=== PATIENT | female | born 1955 | race Caucasian/White ===

== ENCOUNTER 2016-11-12 09:50 | Emergency (ER) | payer MEDICAID ==
[2016-11-12 10:02] VITALS: BMI 30.7
[2016-11-12 10:05] VITALS: BP 123/83; PULSE 73; RESP 16; TEMP 98; O2SAT 100
[2016-11-12] MEDS ORDERED: Silver Sulfadiazine 1% CREAM (50 gm) TOP STA (10:17)
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
[2016-11-12] MEDS ORDERED: Silver Sulfadiazine 1% CREAM (50 gm) ONE (10:48)
== END 2016-11-12 11:12 | disposition home or self-care (01) ==
LOC: H.ER 09:50
DX: T25.222A Burn of second degree of left foot, initial encounter (principal); X10.2XXA Contact with fats and cooking oils, initial encounter; Y92.89 Other specified places as the place of occurrence of the external cause

== ENCOUNTER 2017-01-03 20:19 | Emergency (ER) | payer MEDICAID ==
[2017-01-03 20:20] VITALS: BMI 30.7
[2017-01-03 20:27] VITALS: BP 112/68; PULSE 66; RESP 18; TEMP 98; O2SAT 98
--- NOTE | 2017-01-03 21:51 | ED PDOC ---
HPI: General Adult Time Seen by Provider: 01/03/17 20:53 Chief Complaint (Nursing): Headache Chief Complaint (Provider): Headache History Per: Patient History/Exam Limitations: no limitations Current Symptoms Are (Timing): Still Present Additional Complaint(s): 61 y/o female with past medical history of arthritis presents to the ED after being diagnosed with Lyme disease by her orthopedic (Dr. Wills). He recommended her to come to ED for further bloodwork. She notes that her face is puffy and has had headaches, neck pain and shoulder pain being worked up as outpatient. Denies rash. Denies any travel or exposure to areas endemic of Lyme disease. PMD: Mo Rodrigues MD Past Medical History Reviewed: Historical Data, Nursing Documentation, Vital Signs Vital Signs: Last Vital Signs Temp 98 F 01/03/17 20:23 Pulse 66 01/03/17 20:23 Resp 18 01/03/17 20:23 BP 112/68 01/03/17 20:23 Pulse Ox 98 01/03/17 21:57 - Medical History PMH: Anxiety, Arthritis, Asthma, COPD, Hypercholesterolemia, Osteoporosis Denies: HIV, Chronic Kidney Disease - Surgical History Surgical History: (x 2) - Family History Family History: States: Unknown Family Hx - Immunization History Hx Tetanus Toxoid Vaccination: No (not sure of last booster) - Home Medications Home Medications: Ambulatory Orders Medication Instructions Recorded Albuterol HFA [Ventolin HFA 90 2 puff IH Q4H PRN 11/25/15 mcg/actuation (8 g)] Alprazolam [Xanax] 0.5 mg PO BID 11/25/15 Zolpidem [Ambien] 10 mg PO HS PRN 11/25/15 Ibuprofen [Motrin Tab] 800 mg PO Q8 PRN #20 tab 11/12/16 Silver Sulfadiazine 1% 20 gm 1 ea TOP ASDIR #1 tube 11/12/16 [Silvadene] traMADol [Ultram] 50 mg PO TID PRN #15 tab 11/12/16 Cyclobenzaprine [Cyclobenzaprine 10 mg PO BID #15 tab 01/03/17 HCl] Lidocaine [Aspercreme] 1 each TP DAILY #10 adh..patch 01/03/17 - Allergies Allergies/Adverse Reactions: Allergies Allergy/AdvReac Type Severity Reaction Status Date / Time iodine Allergy RASH Verified 11/12/16 10:13 Review of Systems ROS Statement: Except As Marked, All Systems Reviewed And Found Negative (As per HPI, otherwise negative) Musculoskeletal: Positive for: Neck Pain, Shoulder Pain Skin: Negative for: Rash Neurological: Positive for: Headache Physical Exam - Reviewed Nursing Documentation Reviewed: Yes Vital Signs Reviewed: Yes - Physical Exam Appears: Positive for: Non-toxic, No Acute Distress Head Exam: Positive for: ATRAUMATIC, NORMOCEPHALIC Skin: Positive for: Normal Color, Warm, Dry Eye Exam: Positive for: EOMI, Normal appearance, PERRL Neck: Positive for: Normal, Painless ROM, Supple Cardiovascular/Chest: Positive for: Regular Rate, Rhythm. Negative for: Murmur Respiratory: Positive for: Normal Breath Sounds. Negative for: Respiratory Distress Gastrointestinal/Abdominal: Positive for: Normal Exam, Soft. Negative for: Tenderness Back: Positive for: Normal Inspection. Negative for: L CVA Tenderness, R CVA Tenderness, Vertebral Tenderness Extremity: Positive for: Normal ROM. Negative for: Pedal Edema, Deformity Neurologic/Psych: Positive for: Alert, Oriented (x3) - ECG O2 Sat by Pulse Oximetry: 98 (RA) Pulse Ox Interpretation: Normal Medical Decision Making Medical Decision Making: Time: 21:08 Initial Impression: Lyme disease in setting of arthritis Plan: Lyme disease AB (IGG, M), IB Lyme disease, EIA, W/RFL WB Flexeril 10mg PO Motrin 600mg PO Explained to patient that lyme titers will take days to come back, states she will followup with Dr. Rodrigues in 2 days. Stable for discharge. Return precautions discussed. Scribe Attestation: Documented by Joseph Wills acting as a scribe for Eloy Price MD. Scribe Attestation: All medical record entries made by the Scribe were at my direction and personally dictated by me. I have reviewed the chart and agree that the record accurately reflects my personal performance of the history, physical exam, medical decision making, and the department course for this patient. I have also personally directed, reviewed, and agree with the discharge instructions and disposition. Disposition - Clinical Impression Clinical Impression: Joint pain - Disposition Referrals: Mo Rodrigues MD [Staff Provider] - Disposition: Routine/Home Disposition Time: 21:00 Condition: STABLE Additional Instructions: Please followup with Dr. Rodrigues for your blood results. Prescriptions: Cyclobenzaprine [Cyclobenzaprine HCl] 10 mg PO BID #15 tab Lidocaine [Aspercreme] 1 each TP DAILY #10 adh..patch Instructions: Arthralgia (ED) Forms: [facility] (Latvian)
[2017-01-06 07:36] LABS: 18 KD (IGG) BAND Nonreactive; 23 KD (IGG) BAND Nonreactive; 23 KD (IGM) BAND Nonreactive; 28 KD (IGG) BAND Nonreactive; 30 KD (IGG) BAND Nonreactive; 39 KD (IGG) BAND Nonreactive; 39 KD (IGM) BAND Nonreactive; 41 KD (IGG) BAND Nonreactive; 41 KD (IGM) BAND Nonreactive; 45 KD (IGG) BAND Nonreactive; 58 KD (IGG) BAND Nonreactive; 66 KD (IGG) BAND Nonreactive; 93 KD (IGG) BAND Nonreactive; LYME DISEASE INTERP (IGG) Negative (Negative)
== END 2017-01-03 22:10 | disposition home or self-care (01) ==
LOC: H.ER 20:19
DX: M25.50 Pain in unspecified joint (principal); M81.0 Age-related osteoporosis without current pathological fracture; J44.9 Chronic obstructive pulmonary disease, unspecified; F41.9 Anxiety disorder, unspecified; E78.00 Pure hypercholesterolemia, unspecified

== ENCOUNTER 2018-02-14 19:20 | Emergency (ER) | payer MEDICAID ==
[2018-02-14 19:20] VITALS: BMI 32.3
[2018-02-14 21:14] VITALS: BP 135/89; PULSE 69; RESP 16; TEMP 98.3; O2SAT 97
[2018-02-14] MEDS ORDERED: Albuterol-Ipratrop 3 mg / 0.5 (3 ml) UD ONE (21:24)
[2018-02-14] MEDS ORDERED: Albuterol-Ipratrop 3 mg / 0.5 (3 ml) UD INH STA ×2 (21:37→22:00)
--- NOTE | 2018-02-14 21:46 | ED PDOC ---
HPI: Influenza Time Seen by Provider: 02/14/18 21:36 Chief Complaint: Flu-like Symptoms Chief Complaint (Provider): Flu-like Symptoms History Per: Patient Exam Limitations: no limitations Onset/Duration Of Symptoms: Days Symptoms include: headache, bodyaches, cough Additional complaint(s):: 34 y/o female with PMHx of asthma presents to the ED for an evaluation of cough, headache, nausea and difficulty breathing onset for one week. Patient has received her flu shot. Also reports of muscle pain and body ache. Otherwise she denies chills, ear pain, vomiting or diarrhea. PMD: Mo Rodrigues Past Medical History Reviewed: Historical Data, Nursing Documentation, Vital Signs Vital Signs: Last Vital Signs Temp 98.3 F 02/14/18 21:11 Pulse 69 02/14/18 21:11 Resp 16 02/14/18 21:11 BP 135/89 02/14/18 21:11 Pulse Ox 97 02/14/18 21:11 - Medical History PMH: Anxiety, Arthritis, Asthma, COPD, Hypercholesterolemia, Osteoporosis Denies: HIV, Chronic Kidney Disease - Surgical History Surgical History: (x 2) - Family History Family History: States: Unknown Family Hx - Immunization History Hx Tetanus Toxoid Vaccination: No (not sure of last booster) - Home Medications Home Medications: Ambulatory Orders Medication Instructions Recorded RX: Albuterol HFA [Ventolin HFA 90 2 puff IH Q4H PRN 11/25/15 mcg/actuation (8 g)] RX: Alprazolam [Xanax] 0.5 mg PO BID 11/25/15 RX: Zolpidem [Ambien] 10 mg PO HS PRN 11/25/15 Ibuprofen [Motrin Tab] 800 mg PO Q8 PRN #20 tab 11/12/16 RX: traMADol [Ultram] 50 mg PO TID PRN #15 tab 11/12/16 Silver Sulfadiazine 1% 20 gm 1 ea TOP ASDIR #1 tube 11/12/16 [Silvadene] Cyclobenzaprine [Cyclobenzaprine 10 mg PO BID #15 tab 01/03/17 HCl] Lidocaine [Aspercreme] 1 each TP DAILY #10 adh..patch 01/03/17 Oseltamivir Phosphate [Tamiflu] 75 mg PO BID #10 capsule 01/09/19 RX: Cyclobenzaprine [Flexeril] 10 mg PO TID #27 tab 02/14/18 RX: Diclofenac Potassium 50 mg PO BID #20 tablet 02/14/18 - Allergies Allergies/Adverse Reactions: Allergies Allergy/AdvReac Type Severity Reaction Status Date / Time Iodinated Contrast- Oral and Allergy RASH Verified 02/14/18 21:11 IV Dye iodine Allergy RASH Verified 02/14/18 21:10 Review of Systems ROS Statement: Except As Marked, All Systems Reviewed And Found Negative Constitutional: Negative for: Chills ENT: Negative for: Ear Pain Respiratory: Positive for: Cough, Shortness of Breath Gastrointestinal: Positive for: Nausea. Negative for: Vomiting, Diarrhea Neurological: Positive for: Headache Physical Exam - Reviewed Nursing Documentation Reviewed: Yes Vital Signs Reviewed: Yes - Physical Exam Appears: Positive for: Well, Non-toxic, No Acute Distress Head Exam: Positive for: ATRAUMATIC, NORMAL INSPECTION, NORMOCEPHALIC Skin: Positive for: Normal Color, Warm, Dry. Negative for: Rash Eye Exam: Positive for: EOMI, Normal appearance, PERRL ENT: Positive for: Other (nodes +2 bilateral) Cardiovascular/Chest: Positive for: Regular Rate, Rhythm. Negative for: Murmur Respiratory: Positive for: Normal Breath Sounds. Negative for: Decreased Breath Sounds, Wheezing, Respiratory Distress Neurologic/Psych: Positive for: Alert, Oriented (x3). Negative for: Motor/Sensory Deficits Medical Decision Making Medical Decision Making: Time: 2136 Plan: Albuterol 3ml INH Nebulizer treatment Peak Flow Pre/Post Reevaluation ----- Scribe Attestation: Documented by Jennifer Mansfield, acting as a scribe for Helio Spears PA-C Provider Scribe Attestation: All medical record entries made by the Scribe were at my direction and personally dictated by me. I have reviewed the chart and agree that the record accurately reflects my personal performance of the history, physical exam, medical decision making, and the department course for this patient. I have also personally directed, reviewed, and agree with the discharge instructions and disposition. - ECG O2 Sat by Pulse Oximetry: 97 (RA) Pulse Ox Interpretation: Normal Disposition - Clinical Impression Clinical Impression: Influenza-like symptoms - Disposition Referrals: [facility] [Outside] Disposition Time: 23:29 Condition: STABLE Prescriptions: RX: Cyclobenzaprine [Flexeril] 10 mg PO TID #27 tab RX: Diclofenac Potassium 50 mg PO BID #20 tablet Oseltamivir Phosphate [Tamiflu] 75 mg PO BID #10 capsule Instructions: Flu, Adult (DC) Forms: [employer] [facility] (Latvian)
== END 2018-02-14 23:34 | disposition home or self-care (01) ==
LOC: H.ER 19:20
DX: J11.1 Influenza due to unidentified influenza virus with other respiratory manifestations (principal)

== ENCOUNTER 2018-03-21 12:39 | Emergency (ER) | payer MEDICAID, OTHER ==
[2018-03-21 12:40] VITALS: BMI 32.3
[2018-03-21 13:03] VITALS: RESP 16
--- NOTE | 2018-03-21 16:04 | ED PDOC ---
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 Patient reports she was putting air in her tire, bend over and had severe pain. She was able to get up and move around but with pain. She denies any paresthesia or muscle weakness. no saddle anasthesia. PMD: Lilia Past Medical History Reviewed: Historical Data, Nursing Documentation, Vital Signs Vital Signs: Last Vital Signs Temp 97.7 F 03/21/18 13:00 Pulse 68 03/21/18 13:00 Resp 16 03/21/18 13:00 BP 110/72 03/21/18 13:00 Pulse Ox 97 03/21/18 13:00 - Medical History PMH: Anxiety, Arthritis, Asthma, COPD, Hypercholesterolemia, Osteoporosis Denies: HIV, Chronic Kidney Disease - Surgical History Surgical History: (x 2) Other surgeries: orthopedic surgery: right shoulder and carpal tunnel procedures - Family History Family History: States: Unknown Family Hx - Social History Current smoker - smoking cessation education provided: No Ex-Smoker (has not smoked in the last 12 months): No Alcohol: None Drugs: Denies - Immunization History Hx Tetanus Toxoid Vaccination: No (not sure of last booster) - Home Medications Home Medications: Ambulatory Orders Medication Instructions Recorded RX: Albuterol HFA [Ventolin HFA 90 2 puff IH Q4H PRN 11/25/15 mcg/actuation (8 g)] RX: Alprazolam [Xanax] 0.5 mg PO BID 11/25/15 RX: Zolpidem [Ambien] 10 mg PO HS PRN 11/25/15 Ibuprofen [Motrin Tab] 800 mg PO Q8 PRN #20 tab 11/12/16 RX: traMADol [Ultram] 50 mg PO TID PRN #15 tab 11/12/16 Silver Sulfadiazine 1% 20 gm 1 ea TOP ASDIR #1 tube 11/12/16 [Silvadene] Cyclobenzaprine [Cyclobenzaprine 10 mg PO BID #15 tab 01/03/17 HCl] Lidocaine [Aspercreme] 1 each TP DAILY #10 adh..patch 01/03/17 Oseltamivir Phosphate [Tamiflu] 75 mg PO BID #10 capsule 02/14/18 RX: Cyclobenzaprine [Flexeril] 10 mg PO TID #27 tab 02/14/18 RX: Diclofenac Potassium 50 mg PO BID #20 tablet 02/14/18 Ibuprofen [Motrin Tab] 600 mg PO Q6 PRN #20 tab 03/21/18 - Allergies Allergies/Adverse Reactions: Allergies Allergy/AdvReac Type Severity Reaction Status Date / Time Iodinated Contrast- Oral and Allergy RASH Verified 03/21/18 13:01 IV Dye iodine Allergy RASH Verified 03/21/18 13:01 Review of Systems ROS Statement: Except As Marked, All Systems Reviewed And Found Negative Musculoskeletal: Positive for: Back Pain Physical Exam - Reviewed Nursing Documentation Reviewed: Yes Vital Signs Reviewed: Yes - Physical Exam Appears: Positive for: No Acute Distress Head Exam: Positive for: ATRAUMATIC, NORMOCEPHALIC Skin: Positive for: Normal Color, Warm, Dry Eye Exam: Positive for: Normal appearance, EOMI, PERRL ENT: Positive for: Normal ENT Inspection Neck: Positive for: Normal Cardiovascular/Chest: Positive for: Regular Rate, Rhythm. Negative for: Murmur Respiratory: Positive for: Normal Breath Sounds. Negative for: Respiratory Distress Gastrointestinal/Abdominal: Positive for: Normal Exam, Soft. Negative for: Tenderness Back: Positive for: Other (tenderness to right paraspinal, thoracic and lumbar area ). 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 Negative for: Motor/Sensory Deficits - ECG O2 Sat by Pulse Oximetry: 97 (RA) Pulse Ox Interpretation: Normal Medical Decision Making Medical Decision Making: Time: 1550 Plan: --Flexeril 10 mg PO --Ibuprofen 600 mg PO --Dorsal Spine XR --LS spine XR Time: 1612 Thoracic Spine XR FINDINGS: BONES: Alignment maintained. No fracture. Mild right marginal osteophytosis T7-8 DISC SPACES: Normal. SOFT TISSUES: Grossly maintained. OTHER FINDINGS: None. IMPRESSION: Minimal-mild midthoracic spondylosis. As above. No fracture or lytic lesion. Time:1617 Lumbar Spine XR FINDINGS: Lumbar spine BONES: No fracture seen. Trace endplate spondylosis noted and minimal Schmorl's node like indentations at L2-3 and L1-2. No subluxation seen. No lytic lesions. A rimmed 2 to 3 mm calcification ossification projects anterior to the L4-5 disc space on the lateral view this is believed identified on the 2014 study this also likely projects over the right L5 transverse process on the frontal view this faintly seen also on the 2014 study. This may represent a phlebolith. DISC SPACES: Unremarkable. OTHER FINDINGS: None. IMPRESSION: No interval fracture or lytic lesions. Minimal endplate spondylosis and minimal Schmorl's node like indentations. Other findings as above. pt reevaluated, feels imrpoved. increased mobility pt made aware of incidental findings and need to follow up for oupt MRI with pcp/orthopedist Scribe Attestation: Documented by Samanta Joe, acting as a scribe for Hetal Son MD. Provider Scribe Attestation: All medical record entries made by the Scribe were at my direction and personally dictated by me. I have reviewed the chart and agree that the record accurately reflects my personal performance of the history, physical exam, medical decision making, and the department course for this patient. I have also personally directed, reviewed, and agree with the discharge instructions and disposition. Disposition - Clinical Impression Clinical Impression: Strain, back - Patient ED Disposition Is Patient to be Admitted: No Counseled Patient/Family Regarding: Studies Performed, Diagnosis, Need For Followup - Disposition Disposition: Routine/Home Disposition Time: 18:00 Condition: IMPROVED Additional Instructions: follow up with your primary doctor DR isidro in 2 days for reevaluation return to the ED with any worsening or concerning symptoms Prescriptions: Ibuprofen [Motrin Tab] 600 mg PO Q6 PRN #20 tab PRN Reason: Pain, Moderate (4-7) Instructions: Muscle Strain Forms: [facility] (Finnish)
--- NOTE | 2018-03-21 16:16 | RAD ---
Date of service: 03/21/2018 HISTORY: pain COMPARISON: No prior. FINDINGS: BONES: Alignment maintained. No fracture. Mild right marginal osteophytosis T7-8 DISC SPACES: Normal. SOFT TISSUES: Grossly maintained. OTHER FINDINGS: None. IMPRESSION: Minimal-mild midthoracic spondylosis. As above. No fracture or lytic lesion.
--- NOTE | 2018-03-21 16:20 | RAD ---
Date of service: 03/21/2018 PROCEDURE: Radiographs of the Lumbar Spine. HISTORY: pain COMPARISON: 06/05/2013 FINDINGS: Lumbar spine BONES: No fracture seen. Trace endplate spondylosis noted and minimal Schmorl's node like indentations at L2-3 and L1-2. No subluxation seen. No lytic lesions. A rimmed 2 to 3 mm calcification ossification projects anterior to the L4-5 disc space on the lateral view this is believed identified on the 2013 study this also likely projects over the right L5 transverse process on the frontal view this faintly seen also on the 2013 study. This may represent a phlebolith. DISC SPACES: Unremarkable. OTHER FINDINGS: None. IMPRESSION: No interval fracture or lytic lesions. Minimal endplate spondylosis and minimal Schmorl's node like indentations. Other findings as above.
[2018-03-21 18:06] VITALS: BP 120/80; PULSE 72; TEMP 98
[2018-03-22 13:01] VITALS: O2SAT 97
== END 2018-03-21 18:06 | disposition home or self-care (01) ==
LOC: H.ER 12:39
DX: S39.012A Strain of muscle, fascia and tendon of lower back, initial encounter (principal); X58.XXXA Exposure to other specified factors, initial encounter; Y92.89 Other specified places as the place of occurrence of the external cause; R73.03 Prediabetes

== ENCOUNTER 2018-06-09 14:57 | Emergency (ER) | payer OTHER ==
[2018-06-09 14:58] VITALS: BMI 32.3
[2018-06-09] MEDS ORDERED: Albuterol-Ipratrop 3 mg / 0.5 (3 ml) UD INH STA (15:48)
--- NOTE | 2018-06-09 16:23 | ED PDOC ---
HPI: Asthma Time Seen by Provider: 06/09/18 15:28 Chief Complaint (Nursing): Cough, Cold, Congestion Chief Complaint (Provider): asthma and cough History Per: Patient History/Exam Limitations: no limitations Onset/Duration Of Symptoms: Days (x6) Current Symptoms Are (Timing): Still Present Additional Complaint(s): 63 y/o female presents to the ER with cough and asthma since Monday associated with sore throat, chest tightness, nonproductive cough, and rhinorrhea. Patient called her doctor on Monday and got a prescription for Azithromycin which she started Monday. On she developed a fever. She began taking over the counter cough and cold medication but with no relief. Today, her chest felt became too tight prompting ED visit. Denies leg swelling, recent travel, or known sick contacts. Patient reports her trigger for asthma is URI, allergies, and cold weather. PMD: Dr. Rodrigues Past Medical History Reviewed: Historical Data, Nursing Documentation, Vital Signs Vital Signs: Last Vital Signs Temp 99.7 F H 06/09/18 15:01 Pulse 103 H 06/09/18 15:01 Resp 16 06/09/18 15:01 BP 120/78 06/09/18 15:01 Pulse Ox 97 06/09/18 15:01 Primary Care Provider: Mo Rodrigues - Medical History PMH: Anxiety, Arthritis, Asthma, COPD, Hypercholesterolemia, Osteoporosis Denies: HIV, Chronic Kidney Disease - Surgical History Surgical History: (x 2) - Family History Family History: States: No Known Family Hx - Social History Current smoker - smoking cessation education provided: No - Immunization History Hx Tetanus Toxoid Vaccination: No (not sure of last booster) - Home Medications Home Medications: Ambulatory Orders Medication Instructions Recorded Albuterol HFA [Ventolin HFA 90 2 puff IH Q4H PRN 11/25/15 mcg/actuation (8 g)] Alprazolam [Xanax] 0.5 mg PO BID 11/25/15 Zolpidem [Ambien] 10 mg PO HS PRN 11/25/15 Ibuprofen [Motrin Tab] 800 mg PO Q8 PRN #20 tab 11/12/16 Silver Sulfadiazine 1% 20 gm 1 ea TOP ASDIR #1 tube 11/12/16 [Silvadene] traMADol [Ultram] 50 mg PO TID PRN #15 tab 11/12/16 Cyclobenzaprine [Cyclobenzaprine 10 mg PO BID #15 tab 01/03/17 HCl] Lidocaine [Aspercreme] 1 each TP DAILY #10 adh..patch 01/03/17 Cyclobenzaprine [Flexeril] 10 mg PO TID #27 tab 02/14/18 Diclofenac Potassium 50 mg PO BID #20 tablet 02/14/18 Oseltamivir Phosphate [Tamiflu] 75 mg PO BID #10 capsule 02/14/18 Ibuprofen [Motrin Tab] 600 mg PO Q6 PRN #20 tab 03/21/18 Prednisone 50 mg PO DAILY #4 tablet 06/09/18 - Allergies Allergies/Adverse Reactions: Allergies Allergy/AdvReac Type Severity Reaction Status Date / Time Iodinated Contrast- Oral and Allergy RASH Verified 06/09/18 15:01 IV Dye iodine Allergy RASH Verified 06/09/18 15:01 Review of Systems ROS Statement: Except As Marked, All Systems Reviewed And Found Negative (as per HPI) ENT: Positive for: Nose Discharge (Rhinorrhea), Throat Pain (Sore throat) Cardiovascular: Positive for: Chest Pain (Chest tightness) Respiratory: Positive for: Cough Musculoskeletal: Negative for: Other (leg swelling) Physical Exam - Reviewed Nursing Documentation Reviewed: Yes Vital Signs Reviewed: Yes - Physical Exam Appears: Positive for: Non-toxic, In Acute Distress (Respiratory distress) Head Exam: Positive for: ATRAUMATIC, NORMOCEPHALIC Skin: Positive for: Warm, Dry Eye Exam: Positive for: EOMI, PERRL ENT: Negative for: Pharyngeal Erythema, Tonsillar Exudate Neck: Positive for: Painless ROM, Supple Cardiovascular/Chest: Positive for: Regular Rate, Rhythm. Negative for: Murmur Respiratory: Positive for: Rhonchi (faint ronchi in the left lower lung field), Wheezing (diffuse expiratory wheeze). Negative for: Accessory Muscle Use, Rales Gastrointestinal/Abdominal: Positive for: Soft. Negative for: Tenderness Back: Positive for: Normal Inspection. Negative for: Decreased ROM Extremity: Positive for: Normal ROM. Negative for: Deformity Lymphatic: Negative for: Adenopathy Neurological/Psych: Positive for: Awake, Alert. Negative for: Motor/Sensory Deficits - ECG O2 Sat by Pulse Oximetry: 97 (RA) Pulse Ox Interpretation: Normal Medical Decision Making Medical Decision Making: Initial Impression: Asthma exacerbation and URI Differential includes but not limited to bronchitis, influenza, and pneumonia. Initial Plan: --Chest X-ray --Albuterol 9mL INH --Solumedrol 125mg IM --Peak flow --Influenza A B stat CXR unremarkable Serology flu negative 1700 Pt feeling better. Stable for discharge. DW pt findings and plan of care. R eturn parameters discussed. Scribe Attestation: Documented by Mike Joe acting as a scribe for Malika oJhn MD. Provider Scribe Attestation: All medical record entries made by the Scribe were at my direction and personally dictated by me. I have reviewed the chart and agree that the record a ccurately reflects my personal performance of the history, physical exam, medical decision making, and the department course for this patient. I have also personally directed, reviewed, and agree with the discharge instructions and disposition. Disposition - Clinical Impression Clinical Impression: Asthma exacerbation Counseled Patient/Family Regarding: Studies Performed, Diagnosis, Need For Followup, Rx Given - Disposition Referrals: Mo Rodrigues MD [Family Provider] - 06/11/18 Disposition: Routine/Home Disposition Time: 17:22 Condition: IMPROVED Prescriptions: Prednisone 50 mg PO DAILY #4 tablet Instructions: Asthma, Adult (DC)
--- NOTE | 2018-06-09 17:17 | RAD ---
Date of service: 06/09/2018 HISTORY: COUGH FEVER ASTHMA COMPARISON: Comparison chest dated 05/03/2018 TECHNIQUE: Chest PA and lateral views FINDINGS: LUNGS: Minor bibasilar atelectasis PLEURA: No significant pleural effusion identified. No pneumothorax apparent. CARDIOVASCULAR: No aortic atherosclerotic calcification present. Normal cardiac size. No pulmonary vascular congestion. OSSEOUS STRUCTURES: Minor multilevel degenerative spondylosis of the thoracic spine. VISUALIZED UPPER ABDOMEN: Normal. OTHER FINDINGS: None. IMPRESSION: Minor bibasilar atelectasis
[2018-06-09 17:32] VITALS: BP 114/62; PULSE 100; RESP 18; TEMP 98.3
[2018-06-11 15:49] VITALS: O2SAT 97
== END 2018-06-09 17:31 | disposition home or self-care (01) ==
LOC: H.ER 14:57
DX: J45.901 Unspecified asthma with (acute) exacerbation (principal); E78.00 Pure hypercholesterolemia, unspecified; J44.0 Chronic obstructive pulmonary disease with (acute) lower respiratory infection; M81.0 Age-related osteoporosis without current pathological fracture; Z88.8 Allergy status to other drugs, medicaments and biological substances
CPT/HCPCS: 71046; 87804; 94640; 96372; 99284; J2930